=== PATIENT | male | born 1960 | race Two or more races ===

== ENCOUNTER 2017-01-29 11:06 | Outpatient (CLI) | payer BC ==
[2017-01-29 12:12] LABS: BASOPHILS % (AUTO) 0.6 % (0.0-2.0); EOSINOPHILS # (AUTO) 0.5 /CMM (0.0-0.7); EOSINOPHILS % (AUTO) 5.9 % (0.0-6.0); HEMATOCRIT 43 % (39-51); HEMOGLOBIN 14.1 g/dL (13.5-17.5); LYMPHOCYTES # (AUTO) 3.1 /CMM (0.8-4.8); LYMPHOCYTES % (AUTO) 35.4 % (20.0-44.0); MEAN CORPUSCULAR HEMOGLOBIN 29 PG (26.0-33.0); MEAN CORPUSCULAR HGB CONC 33 g/dl (31.0-36.0); MEAN CORPUSCULAR VOLUME 88 fL (80-96); MONOCYTES # (AUTO) 0.5 /CMM (0.1-1.30); NEUTROPHILS # (AUTO) 4.6 /CMM (1.8-8.9); NEUTROPHILS % (AUTO) 52.1 % (43.0-81.0); PLATELET COUNT (AUTO) 316 /CMM (150-450); RDW COEFFICIENT OF VARIATION 13.4 (11.5-15.0); RED BLOOD CELL COUNT(AUTO) 4.88 MIL/uL (4.5-6.0); WHITE BLOOD COUNT (AUTO) 8.8 K/uL (4.3-11.0)
[2017-01-29 12:25] LABS: APPEARANCE,URINE CLEAR (CLEAR); BILIRUBIN,URINE NEGATIVE (NEGATIVE); BLOOD, URINE 1+ Ery/uL (NEGATIVE); COLOR,URINE YELLOW (YELLOW); KETONES,URINE NEGATIVE (NEGATIVE); LEUKOCYTE ESTERASE ,URINE NEGATIVE (NEGATIVE); NITRITE, URINE NEGATIVE (NEGATIVE); PH,URINE 5.5 (5.0-8.0); PROTEIN,URINE NEGATIVE (NEGATIVE); UGLUCOSE NEGATIVE (NEGATIVE); UROBILINOGEN,URINE 0.2 EU/dL (0.2)
[2017-01-29 12:37] LABS: BILIRUBIN,TOTAL 0.7 mg/dL (0.2-1.0); CALCIUM, SERUM 8.8 mg/dL (8.5-10.1); CREATININE 1.1 mg/dL (0.6-1.3); POTASSIUM 4.2 mmol/L (3.5-5.1); TOTAL PROTEIN, SERUM 8.4 g/dL (6.4-8.2)
[2017-01-29 13:38] LABS: FREE T4 (FREE THYROXINE) 1.1 ng/dL (0.76-1.46); PROSTATE SPECIFIC ANTIGEN SCR 0.73 ng/mL (0.00-4.00); THYROID STIMULATING HORMONE 1.628 uIU/mL (0.358-3.74); URIC ACID 7.7 mg/dL (2.6-7.2)
[2017-01-29 13:53] LABS: ADD URINE CULTURE NO; BACTERIA,URINE None seen /HPF (None Seen); RBC,URINE 0-2 /HPF (0-2); SQUAMOUS EPITHELIAL CELL,UR None Seen /HPF (None Seen); WBC,URINE NONE SEEN /HPF (0-3)
[2017-01-30 08:07] LABS: *TESTOSTERONE, SERUM 249 ng/dL (348-1197)
[2017-02-01 04:06] LABS: *TESTOSTERONE, FREE (DIRECT) 8.5 pg/mL (7.2-24.0)
== END 2017-01-29 23:59 | disposition home or self-care (01) ==
LOC: LAB 11:06
PROVIDERS: ATTEND Legal Medicine
DX: Z00.01 Encounter for general adult medical examination with abnormal findings (principal); I10 Essential (primary) hypertension; E78.00 Pure hypercholesterolemia, unspecified; E03.9 Hypothyroidism, unspecified
CPT/HCPCS: 36415; 80053-TC; 80061-TC; 81000-TC; 82728-TC; 82746; 82785; 83540-TC; 84153-TC; 84402; 84403; 84439-TC; 84443-TC; 84550-TC; 85025-TC; 86003

== ENCOUNTER 2017-07-09 08:33 | Outpatient (CLI) | payer BC ==
[2017-07-09 09:46] LABS: BASOPHILS % (AUTO) 0.4 % (0.0-2.0); EOSINOPHILS # (AUTO) 0.4 /CMM (0.0-0.7); EOSINOPHILS % (AUTO) 4.9 % (0.0-6.0); HEMATOCRIT 44 % (39-51); HEMOGLOBIN 14.7 g/dL (13.5-17.5); LYMPHOCYTES # (AUTO) 2.4 /CMM (0.8-4.8); LYMPHOCYTES % (AUTO) 31.8 % (20.0-44.0); MEAN CORPUSCULAR HEMOGLOBIN 29 PG (26.0-33.0); MEAN CORPUSCULAR HGB CONC 33 g/dl (31.0-36.0); MEAN CORPUSCULAR VOLUME 88 fL (80-96); MONOCYTES # (AUTO) 0.5 /CMM (0.1-1.30); NEUTROPHILS # (AUTO) 4.3 /CMM (1.8-8.9); NEUTROPHILS % (AUTO) 56.9 % (43.0-81.0); PLATELET COUNT (AUTO) 334 /CMM (150-450); RDW COEFFICIENT OF VARIATION 13.6 (11.5-15.0); RED BLOOD CELL COUNT(AUTO) 5.04 MIL/uL (4.5-6.0); WHITE BLOOD COUNT (AUTO) 7.5 K/uL (4.3-11.0)
[2017-07-09 09:56] LABS: APPEARANCE,URINE CLEAR (CLEAR); BILIRUBIN,URINE NEGATIVE (NEGATIVE); BLOOD, URINE 1+ Ery/uL (NEGATIVE); COLOR,URINE YELLOW (YELLOW); KETONES,URINE TRACE (NEGATIVE); LEUKOCYTE ESTERASE ,URINE NEGATIVE (NEGATIVE); NITRITE, URINE NEGATIVE (NEGATIVE); PH,URINE 5.5 (5.0-8.0); PROTEIN,URINE NEGATIVE (NEGATIVE); UGLUCOSE NEGATIVE (NEGATIVE); UROBILINOGEN,URINE 0.2 EU/dL (0.2)
[2017-07-09 09:57] LABS: ALBUMIN 4.2 g/dL (3.4-5.0); BILIRUBIN,TOTAL 0.6 mg/dL (0.2-1.0); CALCIUM, SERUM 9.1 mg/dL (8.5-10.1); CREATININE 1.1 mg/dL (0.6-1.3); POTASSIUM 4.4 mmol/L (3.5-5.1); TOTAL PROTEIN, SERUM 8.7 g/dL (6.4-8.2)
[2017-07-09 10:07] LABS: PROSTATE SPECIFIC ANTIGEN SCR 0.78 ng/mL (0.00-4.00); THYROID STIMULATING HORMONE 1.181 uIU/mL (0.358-3.74); URIC ACID 9.3 mg/dL (2.6-7.2)
[2017-07-09 11:25] LABS: BACTERIA,URINE Rare /HPF (None Seen); RBC,URINE 0-2 /HPF (0-2); SQUAMOUS EPITHELIAL CELL,UR Rare /HPF (None Seen); WBC,URINE 0-2 /HPF (0-3)
[2017-07-12 02:07] LABS: *TESTOSTERONE, FREE (DIRECT) 6.6 pg/mL (7.2-24.0)
== END 2017-07-09 23:59 | disposition home or self-care (01) ==
LOC: CT 08:33
PROVIDERS: ATTEND Legal Medicine
DX: Z00.01 Encounter for general adult medical examination with abnormal findings (principal); M19.011 Primary osteoarthritis, right shoulder; R16.0 Hepatomegaly, not elsewhere classified; K57.30 Diverticulosis of large intestine without perforation or abscess without bleeding; I25.10 Atherosclerotic heart disease of native coronary artery without angina pectoris; I70.0 Atherosclerosis of aorta; M77.8 Other enthesopathies, not elsewhere classified; M25.78 Osteophyte, vertebrae; R79.89 Other specified abnormal findings of blood chemistry
CPT/HCPCS: 36415; 72128-TC; 73200-TC; 80053-TC; 80061-TC; 81000-TC; 82306; 82728-TC; 82746; 83540-TC; 84153-TC; 84402-TC; 84439-TC; 84443-TC; 84550-TC; 85025-TC

== ENCOUNTER 2017-07-23 10:00 | Outpatient (CLI) | payer BC ==
[2017-07-24] MEDS ORDERED: ONDANSETRON HCL/PF 4 MG/2 ML VIAL ONE (01:37)
== END 2017-07-23 23:59 | disposition home or self-care (01) ==
LOC: CT 10:00
PROVIDERS: ATTEND Legal Medicine
DX: K76.89 Other specified diseases of liver (principal)
CPT/HCPCS: 76705-TC; J2405

== ENCOUNTER 2017-09-21 14:07 | Outpatient (CLI) | payer BC | END 2017-09-21 23:59 | disposition home or self-care (01) | LOC: LAB 14:07 | PROVIDERS: ATTEND Legal Medicine | DX: I10 Essential (primary) hypertension (principal); M10.9 Gout, unspecified | CPT/HCPCS: 36415; 84550-TC ==

== ENCOUNTER 2019-01-12 08:40 | Outpatient (CLI) | payer BC ==
[2019-01-12 09:35] LABS: APPEARANCE,URINE CLEAR (CLEAR); BILIRUBIN,URINE NEGATIVE (NEGATIVE); BLOOD, URINE 1+ Ery/uL (NEGATIVE); COLOR,URINE YELLOW (YELLOW); KETONES,URINE NEGATIVE (NEGATIVE); LEUKOCYTE ESTERASE ,URINE NEGATIVE (NEGATIVE); NITRITE, URINE NEGATIVE (NEGATIVE); PROTEIN,URINE NEGATIVE (NEGATIVE); UGLUCOSE NEGATIVE (NEGATIVE); UROBILINOGEN,URINE 0.2 EU/dL (0.2)
[2019-01-12 09:36] LABS: BASOPHILS # (AUTO) 0.1 /CMM (0.0-0.2); BASOPHILS % (AUTO) 1.2 % (0.0-2.0); EOSINOPHILS % (AUTO) 5.7 % (0.0-6.0); HEMATOCRIT 46 % (39-51); HEMOGLOBIN 15.5 g/dL (13.5-17.5); LYMPHOCYTES # (AUTO) 2.2 /CMM (0.8-4.8); LYMPHOCYTES % (AUTO) 30.6 % (20.0-44.0); MEAN CORPUSCULAR HGB CONC 33 g/dl (31.0-36.0); MEAN CORPUSCULAR VOLUME 90 fL (80-96); MONOCYTES # (AUTO) 0.4 /CMM (0.1-1.30); MONOCYTES % (AUTO) 5.3 % (2.0-12.0); NEUTROPHILS # (AUTO) 4.1 /CMM (1.8-8.9); NEUTROPHILS % (AUTO) 57.2 % (43.0-81.0); PLATELET COUNT (AUTO) 370 /CMM (150-450); RED BLOOD CELL COUNT(AUTO) 5.16 MIL/uL (4.5-6.0); WHITE BLOOD COUNT (AUTO) 7.1 K/uL (4.3-11.0)
[2019-01-12 09:41] LABS: BACTERIA,URINE None seen /HPF (None Seen); SQUAMOUS EPITHELIAL CELL,UR Few /HPF (None Seen); WBC,URINE NONE SEEN /HPF (0-3)
[2019-01-12 10:11] LABS: FREE T4 (FREE THYROXINE) 1.07 ng/dL (0.76-1.46); PROSTATE SPECIFIC ANTIGEN SCR 0.99 ng/mL (0.00-4.00); THYROID STIMULATING HORMONE 1.341 uIU/mL (0.358-3.74); URIC ACID 7.6 mg/dL (2.6-7.2)
[2019-01-12 10:29] LABS: ALBUMIN 4.4 g/dL (3.4-5.0); BILIRUBIN,TOTAL 0.9 mg/dL (0.2-1.0); CALCIUM, SERUM 9.7 mg/dL (8.5-10.1); POTASSIUM 4.3 mmol/L (3.5-5.1); TOTAL PROTEIN, SERUM 9.6 g/dL (6.4-8.2)
[2019-01-13 08:09] LABS: FOLIC ACID 15.3 ng/mL (>3.0)
== END 2019-01-12 23:59 | disposition home or self-care (01) ==
LOC: LAB 08:40
PROVIDERS: ATTEND Legal Medicine
DX: Z00.00 Encounter for general adult medical examination without abnormal findings (principal); D64.9 Anemia, unspecified; E55.9 Vitamin D deficiency, unspecified; E11.9 Type 2 diabetes mellitus without complications; E78.00 Pure hypercholesterolemia, unspecified; I10 Essential (primary) hypertension; E03.9 Hypothyroidism, unspecified
CPT/HCPCS: 36415; 80053-TC; 80061-TC; 81000-TC; 82306; 82728-TC; 83540-TC; 84153-TC; 84402; 84403; 84439-TC; 84443-TC; 84550-TC; 85025-TC

== ENCOUNTER 2021-10-10 09:39 | Outpatient (CLI) | payer BC ==
[2021-10-10 10:28] LABS: BASOPHILS # (AUTO) 0.1 K/uL (0.0-0.2); BASOPHILS % (AUTO) 1.2 % (0.0-2.0); EOSINOPHILS % (AUTO) 4.1 % (0.0-6.0); HEMATOCRIT 43 % (39-51); HEMOGLOBIN 14.7 g/dL (13.5-17.5); LYMPHOCYTES # (AUTO) 2.6 K/uL (0.8-4.8); LYMPHOCYTES % (AUTO) 29.4 % (20.0-44.0); MEAN CORPUSCULAR HGB CONC 34 g/dl (31.0-36.0); MEAN CORPUSCULAR VOLUME 89 fL (80-96); MONOCYTES # (AUTO) 0.4 K/uL (0.1-1.30); NEUTROPHILS # (AUTO) 5.2 K/uL (1.8-8.9); NEUTROPHILS % (AUTO) 60.3 % (43.0-81.0); PLATELET COUNT (AUTO) 388 K/uL (150-450); RED BLOOD CELL COUNT(AUTO) 4.85 MIL/uL (4.5-6.0); WHITE BLOOD COUNT (AUTO) 8.7 K/uL (4.3-11.0)
[2021-10-10 10:50] LABS: BILIRUBIN,URINE NEGATIVE (NEGATIVE); COLOR,URINE YELLOW (YELLOW); LEUKOCYTE ESTERASE ,URINE NEGATIVE (NEGATIVE); NITRITE, URINE NEGATIVE (NEGATIVE); PROTEIN,URINE NEGATIVE (NEGATIVE); UGLUCOSE NEGATIVE (NEGATIVE); UROBILINOGEN,URINE 0.2 EU/dL (0.2)
[2021-10-10 11:23] LABS: IRON, SERUM 78 ug/dl (50-175); TOTAL IRON BINDING CAPACITY 313 ug/dl (250-450)
[2021-10-10 12:30] LABS: FREE T4 (FREE THYROXINE) 1.1 ng/dL (0.76-1.46); PROSTATE SPECIFIC ANTIGEN SCR 1.46 ng/mL (0.00-4.00); THYROID STIMULATING HORMONE 1.374 uIU/mL (0.358-3.74); URIC ACID 6.6 mg/dL (2.6-7.2)
[2021-10-10 13:25] LABS: POTASSIUM 3.7 mmol/L (3.5-5.1)
[2021-10-10 13:26] LABS: BILIRUBIN,TOTAL 0.6 mg/dL (0.2-1.0); CALCIUM, SERUM 8.8 mg/dL (8.5-10.1)
[2021-10-10 13:27] LABS: ALBUMIN 3.9 g/dL (3.4-5.0); TOTAL PROTEIN, SERUM 8.8 g/dL (6.4-8.2)
== END 2021-10-10 23:59 | disposition home or self-care (01) ==
LOC: LAB 09:39
PROVIDERS: ATTEND Legal Medicine
DX: I10 Essential (primary) hypertension (principal); E11.9 Type 2 diabetes mellitus without complications; N40.0 Benign prostatic hyperplasia without lower urinary tract symptoms; E55.9 Vitamin D deficiency, unspecified; E78.5 Hyperlipidemia, unspecified; E03.9 Hypothyroidism, unspecified; D64.9 Anemia, unspecified; Z00.00 Encounter for general adult medical examination without abnormal findings
CPT/HCPCS: 36415; 80053-TC; 80061-TC; 81001; 82306; 82607-TC; 82728-TC; 83540-TC; 84153-TC; 84402; 84403; 84439-TC; 84443-TC; 84550-TC; 85025-TC

== ENCOUNTER 2023-02-17 10:23 | Outpatient (CLI) | payer BC ==
[2023-02-17 11:54] LABS: BILIRUBIN,URINE NEGATIVE (NEGATIVE); COLOR,URINE YELLOW (YELLOW); LEUKOCYTE ESTERASE ,URINE NEGATIVE (NEGATIVE); NITRITE, URINE NEGATIVE (NEGATIVE); PROTEIN,URINE 2+ mg/dl (NEGATIVE); UGLUCOSE NEGATIVE (NEGATIVE); UROBILINOGEN,URINE 0.2 EU/dL (0.2)
[2023-02-17 11:55] LABS: BACTERIA,URINE Rare /HPF (None Seen); SQUAMOUS EPITHELIAL CELL,UR Few /HPF (None Seen); WBC,URINE 0-2 /HPF (0-3)
[2023-02-17 12:23] LABS: BASOPHILS # (AUTO) 0.1 K/uL (0.0-0.2); HEMATOCRIT 44 % (39-51); HEMOGLOBIN 14.7 g/dL (13.5-17.5); LYMPHOCYTES # (AUTO) 2.9 K/uL (0.8-4.8); LYMPHOCYTES % (AUTO) 34.2 % (20.0-44.0); MEAN CORPUSCULAR HGB CONC 34 g/dl (31.0-36.0); MEAN CORPUSCULAR VOLUME 88 fL (80-96); MONOCYTES # (AUTO) 0.4 K/uL (0.1-1.30); MONOCYTES % (AUTO) 5.1 % (2.0-12.0); NEUTROPHILS # (AUTO) 4.7 K/uL (1.8-8.9); NEUTROPHILS % (AUTO) 54.7 % (43.0-81.0); PLATELET COUNT (AUTO) 350 K/uL (150-450); RED BLOOD CELL COUNT(AUTO) 4.97 MIL/uL (4.5-6.0); WHITE BLOOD COUNT (AUTO) 8.6 K/uL (4.3-11.0)
[2023-02-17 12:40] LABS: FREE T4 (FREE THYROXINE) 1.11 ng/dL (0.76-1.46); PROSTATE SPECIFIC ANTIGEN SCR 1.5 ng/mL (0.00-4.00); THYROID STIMULATING HORMONE 1.095 uIU/mL (0.358-3.74)
[2023-02-17 12:52] LABS: ALBUMIN 3.9 g/dL (3.4-5.0); BILIRUBIN,TOTAL 0.8 mg/dL (0.2-1.0); CALCIUM, SERUM 9.3 mg/dL (8.5-10.1); CREATININE 0.9 mg/dL (0.6-1.3); POTASSIUM 3.9 mmol/L (3.5-5.1); TOTAL PROTEIN, SERUM 8.3 g/dL (6.4-8.2)
[2023-02-18 08:18] LABS: URIC ACID 6.5 mg/dL (2.6-7.2)
== END 2023-02-17 23:59 | disposition home or self-care (01) ==
LOC: LAB 10:23
PROVIDERS: ATTEND Legal Medicine
DX: Z00.00 Encounter for general adult medical examination without abnormal findings (principal); E78.00 Pure hypercholesterolemia, unspecified; D64.9 Anemia, unspecified; N40.0 Benign prostatic hyperplasia without lower urinary tract symptoms; E55.9 Vitamin D deficiency, unspecified; R53.1 Weakness; E11.9 Type 2 diabetes mellitus without complications; E03.9 Hypothyroidism, unspecified
CPT/HCPCS: 36415; 80053-TC; 80061-TC; 81001; 82306; 82607-TC; 82728-TC; 83540-TC; 84153-TC; 84402; 84403; 84439-TC; 84443-TC; 84550-TC; 85025-TC

== ENCOUNTER 2024-09-15 09:18 | Outpatient (CLI) | payer BC ==
[2024-09-15 09:57] LABS: APPEARANCE,URINE CLEAR (CLEAR); BILIRUBIN,URINE NEGATIVE (NEGATIVE); BLOOD, URINE TRACE-INTA Ery/uL (NEGATIVE); COLOR,URINE YELLOW (YELLOW); KETONES,URINE NEGATIVE (NEGATIVE); LEUKOCYTE ESTERASE ,URINE NEGATIVE (NEGATIVE); NITRITE, URINE NEGATIVE (NEGATIVE); PH,URINE 5.5 (5.0-8.0); PROTEIN,URINE 2+ mg/dl (NEGATIVE); UGLUCOSE NEGATIVE (NEGATIVE); UROBILINOGEN,URINE 0.2 EU/dL (0.2)
[2024-09-15 09:59] LABS: ADD URINE CULTURE NO; BACTERIA,URINE Rare /HPF (None Seen); SQUAMOUS EPITHELIAL CELL,UR Rare /HPF (None Seen); WBC,URINE 0-2 /HPF (0-3)
[2024-09-15 10:07] LABS: BASOPHILS # (AUTO) 0.1 K/uL (0.0-0.2); BASOPHILS % (AUTO) 0.8 % (0.0-2.0); EOSINOPHILS # (AUTO) 0.5 K/uL (0.0-0.7); EOSINOPHILS % (AUTO) 5.4 % (0.0-6.0); HEMATOCRIT 44 % (39-51); LYMPHOCYTES # (AUTO) 2.5 K/uL (0.8-4.8); LYMPHOCYTES % (AUTO) 28.3 % (20.0-44.0); MEAN CORPUSCULAR HEMOGLOBIN 31 PG (26.0-33.0); MEAN CORPUSCULAR HGB CONC 34 g/dl (31.0-36.0); MEAN CORPUSCULAR VOLUME 89 fL (80-96); MONOCYTES # (AUTO) 0.4 K/uL (0.1-1.30); MONOCYTES % (AUTO) 4.8 % (2.0-12.0); NEUTROPHILS # (AUTO) 5.3 K/uL (1.8-8.9); NEUTROPHILS % (AUTO) 60.7 % (43.0-81.0); PLATELET COUNT (AUTO) 391 K/uL (150-450); RED BLOOD CELL COUNT(AUTO) 4.92 MIL/uL (4.5-6.0); RED CELL DISTRIBUTION WIDTH 14.3 % (11.5-15.0); WHITE BLOOD COUNT (AUTO) 8.8 K/uL (4.3-11.0)
[2024-09-15 10:32] LABS: URIC ACID 6.8 mg/dL (2.6-7.2)
[2024-09-15 10:44] LABS: ALBUMIN 3.9 g/dL (3.4-5.0); BILIRUBIN,TOTAL 0.7 mg/dL (0.2-1.0); CALCIUM, SERUM 9.4 mg/dL (8.5-10.1); CREATININE 1.1 mg/dL (0.6-1.3); POTASSIUM 4.5 mmol/L (3.5-5.1); TOTAL PROTEIN, SERUM 8.7 g/dL (6.4-8.2)
== END 2024-09-15 23:59 | disposition home or self-care (01) ==
LOC: LAB 09:18
PROVIDERS: ATTEND Legal Medicine
DX: E11.9 Type 2 diabetes mellitus without complications (principal); I10 Essential (primary) hypertension; E55.9 Vitamin D deficiency, unspecified; E03.9 Hypothyroidism, unspecified; D64.9 Anemia, unspecified; E78.00 Pure hypercholesterolemia, unspecified
CPT/HCPCS: 36415; 80053-TC; 80061-TC; 81001; 82607-TC; 82728-TC; 83540-TC; 84443-TC; 84550-TC; 85025-TC